=== PATIENT | male | born 2000 | race Two or more races ===

== ENCOUNTER 2022-08-04 17:10 | Emergency (ER) | payer MEDICAID, OTHER ==
[~2022-08-04] VITALS: Ht 180.3 cm; Wt 72.7 kg
[2022-08-04] MEDS ORDERED: CLINDAMYCIN 900MG IV 50 ML IV ONE (22:00)
[2022-08-04] MEDS ORDERED: SODIUM CHLORIDE 0.9% 1,000 ML IV ONE (22:00)
[2022-08-04] MEDS ORDERED: TETANUS-DIPTH-ACEL PERTUSSIS 0.5ML SYR Tdap IM ONE (22:00)
[2022-08-04] MEDS ORDERED: cefTRIAXone 1GM/50ML D5W 50 ML IV ONE (22:00)
[2022-08-04] MEDS ORDERED: ACETAMINOPHEN 325 MG TAB PO ONE (22:00)
[2022-08-04 22:30] LABS: Basophils # (auto) 0.1 10 ^3/uL (0-0.2); Basophils % (auto) 0.7 % (0.0-2.0); Eosinophils # (auto) 0.2 10 ^3/uL (0-0.8); Eosinophils % (auto) 2.3 % (0.0-7.0); Hematocrit 44.9 % (41.0-53.0); Hemoglobin 15.2 g/dL (13.5-17.5); Lymphocytes # (auto) 1.9 10 ^3/uL (0.4-5.4); Mean Corpuscular Hemoglobin 32.3 pg (28.0-32.0); Mean Corpuscular Hgb Conc. 33.9 g/dL (32.0-36.0); Mean Corpuscular Volume 95.3 fL (80.0-100.0); Monocytes # (auto) 0.9 10 ^3/uL (0-1.3); Monocytes % (auto) 9.9 % (0.0-12.0); Neutrophils % (auto) 66.1 % (37.0-80.0); Nucleated Red Blood Cells % 0.1 %; Red Blood Cells 4.71 10^6/uL (4.5-5.90); Red Cell Distribution Width 13.7 % (11.8-14.3); White Blood Cell 9.1 10^3/uL (4.4-10.8)
[2022-08-04 22:50] LABS: BUN/Creatinine Ratio 17.6; Calcium 9.4 mg/dL (8.5-10.1); Potassium 4.4 mmol/L (3.5-5.1)
[2022-08-04 22:52] LABS: Bilirubin, Total 0.2 mg/dL (0.2-1.0); Total Protein 7.9 g/dL (6.4-8.2)
[2022-08-04] MEDS ORDERED: AMOX-277 PO (23:54)
[2022-08-05 01:03] VITALS: BP 126/82
== END 2022-08-05 01:03 | disposition home or self-care (01) ==
LOC: ER 17:10
DX: S61.452A Open bite of left hand, initial encounter (principal); L03.114 Cellulitis of left upper limb; W55.01XA Bitten by cat, initial encounter; Y93.89 Activity, other specified; Y92.89 Other specified places as the place of occurrence of the external cause; Y99.8 Other external cause status
CPT/HCPCS: 36415; 80053; 83605; 85025; 87040; 90471; 90715; 96365; 96368; 99284; J0696; J3490; J7030

== ENCOUNTER 2024-07-31 09:17 | Inpatient (IN) | payer MEDICAID ==
[~2024-07-31] VITALS: Ht 175.3 cm; Wt 67.9 kg
[~2024-07-31 09:17] MED LIST: AMOX875T4 PO
--- NOTE | 2024-07-31 09:49 | ED.PDOC ---
Musculoskeletal HPI Comments This is a pleasant 23-year-old that presents with a pain to the right foot located to the 5th distal phalanx. Reports she stubbed her toe broken piece of wood. Symptoms associated with redness swelling tenderness to touch. Concerned about a possible infection. Able to ambulate without assistive devices Still able to ambulate Denies fever chills night sweats nausea vomiting Last Tdap: unknown Chief Complaint: Lower Extremity Time Seen by MD: 09:30 Primary Care Provider: NONE Reviewed Notes: Nurses Notes, Medications, Allergies Allergies: Coded Allergies: NO KNOWN ALLERGIES (Unverified , 08/04/22) Home Meds Active Scripts Amoxicillin & Pot Clavulanate (Amoxicillin/Potassium Cla) 875 Mg Tab, 1 TAB PO BID for 7 Days, #14 TAB 0 Refills Prov:AUSTEN MORALES 08/04/22 Information Source: Patient Mode of Arrival: Ambulatory Past Medical History PAST MEDICAL HISTORY: Denies Surgical History: Denies all surgeries Family History Family History: Reviewed,noncontributory to illness, Unknown Social History Smoker: Non-Smoker, Other Alcohol: Denies ETOH Use Drugs: Denies Drug Use, Marijuana Lives In: Home All Other Systems: Reviewed and Negative (Per HPI) Physical Exam General Appearance: No Apparent Distress, Normal HEENT: Normal ENT Inspection, Pharynx Normal, TMs Normal Neck: Full Range of Motion, Non-Tender, Normal, Normal Inspection Respiratory: Chest Non-Tender, Lungs Clear, No Accessory Muscle Use, No Respiratory Distress, Normal Breath Sounds Cardiovascular: No Edema, No JVD, No Murmur, No Gallop, Normal Peripheral Pulses, Regular Rate/Rhythm Breast Exam: Deferred Gastrointestinal: No Organomegaly, Non Tender, No Pulsatile Mass, Normal Bowel Sounds, Soft Genitalia: Deferred Pelvic: Deferred Rectal: Deferred Extremities: No calf tenderness, Normal capillary refill, Normal inspection, Normal range of motion, Non-tender, No pedal edema Musculoskeletal : Apperance: Normal Neurologic: Alert, No Motor Deficits, Normal Affect, Normal Mood, No Sensory Deficits Cerebellar Function: Normal Reflexes: Normal Skin: Dry, Normal Color, Warm Lymphatic: No Adenopathy Was a procedure done? Was a procedure done?: No Images 1 - Streaking, erythema, warmth, TTP 2 - pin point wound. surrounding erythema. fluctuance. no crepitus. ttp. Differential Diagnosis EXT Differential Diagnosis: Cellulitis, Other X-Ray, Labs, Meds, VS Vital Signs Date Time Temp Pulse Resp B/P (MAP) Pulse Ox O2 Delivery O2 Flow Rate FiO2 07/31/24 17:00 74 14 131/81 (98) 100 07/31/24 14:18 74 18 124/66 (85) 99 07/31/24 09:47 99.1 115 20 150/86 (107) 95 99.1 07/31/24 09:47 115 20 95 Room Air 07/31/24 09:21 99.1 115 20 150/86 (107) 95 Lab Test 07/31/24 10:42 07/31/24 09:29 Range/Units White Blood Count 8.6 4.4-10.8 10^3/uL Red Blood Count 4.70 4.5-5.90 10^6/uL Hemoglobin 14.4 13.5-17.5 g/dL Hematocrit 43.0 41.0-53.0 % Mean Corpuscular Volume 91.5 80.0-100.0 fL Mean Corpuscular Hemoglobin 30.7 28.0-32.0 pg Mean Corpuscular Hemoglobin Concent 33.5 32.0-36.0 g/dL Red Cell Distribution Width 13.4 11.8-14.3 % Platelet Count 293 140-450 10^3/uL Mean Platelet Volume 8.5 6.9-10.8 fL Neutrophils (%) (Auto) 76.9 37.0-80.0 % Lymphocytes (%) (Auto) 15.1 10.0-50.0 % Monocytes (%) (Auto) 5.6 0.0-12.0 % Eosinophils (%) (Auto) 0.8 0.0-7.0 % Basophils (%) (Auto) 1.6 0.0-2.0 % Neutrophils # (Auto) 6.6 1.6-8.6 10 ^3/uL Lymphocytes # (Auto) 1.3 0.4-5.4 10 ^3/uL Monocytes # (Auto) 0.5 0-1.3 10 ^3/uL Eosinophils # (Auto) 0.1 0-0.8 10 ^3/uL Basophils # (Auto) 0.1 0-0.2 10 ^3/uL Nucleated Red Blood Cells 0.0 % Erythrocyte Sedimentation Rate 7 0-20 mm/hr Sodium Level 141 136-145 mmol/L Potassium Level 4.5 3.5-5.1 mmol/L Chloride Level 107 98-107 mmol/L Carbon Dioxide Level 29 20-31 mmol/L Anion Gap 5 5-15 Blood Urea Nitrogen 13 9-23 mg/dL Creatinine 1.00 0.700-1.30 mg/dL Glomerular Filtration Rate Calc 107 >90 mL/min BUN/Creatinine Ratio 13.0 10.0-20.0 Serum Glucose 92 74-106 mg/dL Lactic Acid Level 0.9 0.4-2.0 mmol/L Calcium Level 10.4 8.7-10.4 mg/dL Total Bilirubin 0.6 0.2-1.0 mg/dL Aspartate Amino Transferase (AST) 18 13-40 U/L Alanine Aminotransferase (ALT) 22 7-40 U/L Alkaline Phosphatase 78 46-116 U/L C-Reactive Protein High Sensitivity 0.63 <1.0 mg/dL Total Protein 7.6 5.7-8.2 g/dL Albumin 4.9 H 3.2-4.8 g/dL Urine Color Light-yellow Yellow Urine Clarity Clear Clear Urine pH 6.0 5.0-9.0 Urine Specific [place] 1.021 1.001-1.035 Urine Protein Negative Negative Urine Ketones Negative Negative Urine Blood Negative Negative /uL Urine Nitrite Negative Negative Urine Bilirubin Negative Negative Urine Urobilinogen Normal Negative mg/dL Urine Leukocyte Esterase Negative Negative /uL Urine RBC 1 0 - 3 /hpf Urine WBC <1 0 - 3 /hpf Urine Squamous Epithelial Cells None seen <5 /hpf Urine Bacteria None seen None Seen /hpf Urine Glucose Normal Normal mg/dL Current Medications Medications (Trade) Dose Ordered Sig/Itzel Route Start Time Stop Time Status Last Admin Acetaminophen/ Hydrocodone Bitart (Agness 10/325MG Tab) 1 tab ONCE ONCE PO 07/31/24 10:30 07/31/24 10:31 DC 07/31/24 10:37 Cefazolin Sodium 50 ml @ 100 mls/hr ONCE ONCE IV 07/31/24 13:45 07/31/24 14:14 DC 07/31/24 13:51 Diphtheria/ Tetanus/Acell Pertussis (Boostrix T-Dap) 0.5 ml ONCE ONCE IM 07/31/24 13:45 07/31/24 13:52 DC 07/31/24 14:13 PATIENT: SUHAS WILLISCCT: [id number]: [id number] : 2000 LOC: ER ROOM / BED: / AGE / SEX: 23 / M ADM STATUS: REG ER SERVICE 1255 ORDERING PHYSICIAN: VIKKI JEFFREY NP PROCEDURE(s): RTLEXW - RT LOWER EXTREMITY W CON REASON: Cellulitis, infected joint, abscess?? ORDER NUMBER(s): [id number], ACCESSION NUMBER(s): [id number] INDICATION: Cellulitis, infected joint, abscess COMPARISON: None TECHNIQUE: CT of the right foot was performed without and with contrast. 100 mL Omnipaque 300 were given Volume transverse images were obtained and reconstructed in multiple planes using bone and soft tissue algorithms. Radiation Dose Information: CT Dose: CTDI volume is 7.75 mGy. Dose-length product is 456.39 mGy*cm FINDINGS: No cortical destruction of bone. No periostitis. The joint spaces are normal. There is no fracture, dislocation or aggressive osseous lesion. Subcutaneous soft tissue swelling. No focal soft tissue abscess is seen. IMPRESSION: 1. No signs of osteomyelitis or abscess. Mild cellulitis 2. All CT scans at this medical facility are performed using dose modulation techniques as appropriate to a performed exam including the following: Automated exposure control was utilized; adjustment of the MA and/or KV according to patient size; and use of iterative reconstruction technique. ATED BY: WIN YI MD DICTATED DATE/TIME: 07/31/241331 SIGNED BY: WIN YI MD SIGNED DATE/TIME: 07/31/24 133 CC: X-Ray, Labs, Meds, VS Comment This is a pleasant 23-year-old that presents with a pain to the right foot located to the 5th distal phalanx. History and findings consistent with cellulitis. Patient well appearing. VSS. Given History, Exam, and Workup I have low suspicion for Necrotizing Fasciitis, Abscess, Osteomyelitis, DVT or other emergent problem as a cause for this presentation. Low risk for treatment failure based on history. The patient will be treated with antibiotics. Ancef 1 gm IV Based on location of infection, patient's workup reveals that the patient needs further evaluation and/or treatment for the above medical conditions. Patient verbalized understanding of the above and is awaiting further evaluation by the admitting service. Time of 1ST Reevaluation: 10:16 Reevaluation 1ST: Unchanged Patient Education/Counseling: Diagnosis, Treatment Family Education/Counseling: Diagnosis, Treatment Departure 1 Departure Time of Disposition: 13:46 Impression: Primary Impression: Cellulitis of right foot Disposition: ADMITTED INPATIENT Condition: Fair Critical Care Note Critical Care Time?: No Stability Stability form required: No Heart Score Heart Score: Heart Score Response (Comments) Value History N/A 0 EKG N/A 0 Age N/A 0 Risk Factors N/A 0 Troponin N/A 0 Total 0 VIKKI JEFFREY NP Jul 31, 2024 09:49
[2024-07-31] MEDS: HYDROcodone-ACET 10/325MG TAB PO ONE (10:37)
[2024-07-31 10:43] LABS: Urine Bacteria None Seen /hpf (None Seen)
[2024-07-31 11:06] LABS: Basophils # (auto) 0.1 10 ^3/uL (0-0.2); Basophils % (auto) 1.6 % (0.0-2.0); Eosinophils # (auto) 0.1 10 ^3/uL (0-0.8); Eosinophils % (auto) 0.8 % (0.0-7.0); Hemoglobin 14.4 g/dL (13.5-17.5); Lymphocytes # (auto) 1.3 10 ^3/uL (0.4-5.4); Lymphocytes % (auto) 15.1 % (10.0-50.0); Mean Corpuscular Hemoglobin 30.7 pg (28.0-32.0); Mean Corpuscular Hgb Conc. 33.5 g/dL (32.0-36.0); Mean Corpuscular Volume 91.5 fL (80.0-100.0); Monocytes # (auto) 0.5 10 ^3/uL (0-1.3); Monocytes % (auto) 5.6 % (0.0-12.0); Neutrophils # (auto) 6.6 10 ^3/uL (1.6-8.6); Neutrophils % (auto) 76.9 % (37.0-80.0); Platelet Count (auto) 293 10^3/uL (140-450); Red Cell Distribution Width 13.4 % (11.8-14.3); White Blood Cell 8.6 10^3/uL (4.4-10.8)
[2024-07-31 11:15] LABS: Urine Blood Negative /uL (Negative); Urine Clarity Clear (Clear); Urine Color Light-Yellow (Yellow); Urine Protein, UAD Negative (Negative); Urine Specific Gravity 1.021 (1.001-1.035); Urine Squamous Epithelial Cell None Seen /hpf (<5); Urine Urobilinogen Normal (Negative); Urine WBC <1 /hpf (0 - 3)
[2024-07-31 11:35] LABS: Alanine Aminotransferase 22 U/L (7-40); Alkaline Phosphatase 78 U/L (46-116); Anion Gap 5 (5-15); Aspartate Aminotransferase 18 U/L (13-40); Blood Urea Nitrogen 13 mg/dL (9-23); CRP High Sensitivity 0.63 mg/dL (<1.0); Calcium 10.4 mg/dL (8.7-10.4); Carbon Dioxide 29 mmol/L (20-31); Chloride 107 mmol/L (98-107); Glucose 92 mg/dL (74-106); Potassium 4.5 mmol/L (3.5-5.1); Sodium 141 mmol/L (136-145)
[2024-07-31 11:36] LABS: Bilirubin, Total 0.6 mg/dL (0.2-1.0); Total Protein 7.6 g/dL (5.7-8.2)
[2024-07-31 11:52] LABS: Albumin 4.9 g/dL (3.2-4.8)
[2024-07-31] MEDS: IOHEXOL 300 MG/ML 100ML BOTTLE IJ ONE (13:28)
--- NOTE | 2024-07-31 13:35 | DVH ---
INDICATION: Cellulitis, infected joint, abscess COMPARISON: None TECHNIQUE: CT of the right foot was performed without and with contrast. 100 mL Omnipaque 300 were gi ebonie Volume transverse images were obtained and reconstructed in multiple planes using bone and soft t issue algorithms. Radiation Dose Information: CT Dose: CTDI volume is 7.75 mGy. Dose-length product is 456.39 mGy*cm FINDINGS: No cortical destruction of bone. No periostitis. The joint spaces are normal. There is no fracture, dislocation or aggressive osseous lesion. Subcutaneous soft tissue swelling. No focal soft tissue abscess is seen. IMPRESSION: 1. No signs of osteomyelitis or abscess. Mild cellulitis 2. All CT scans at this medical facility are performed using dose modulation techniques as appropriat e to a performed exam including the following: Automated exposure control was utilized; adjustment of the MA and/or KV according to patient size; and use of iterative reconstruction technique.
[2024-07-31] MEDS: ceFAZolin 1GM/50ML 50 ML IV ONE (13:51)
[2024-07-31 13:55] LABS: Erythrocyte Sedimentation Rate 7 mm/hr (0-20)
[2024-07-31] MEDS: TETANUS-DIPTH-ACEL PERTUSSIS 0.5ML SYR Tdap IM ONE (14:13)
[2024-07-31] MEDS ORDERED: TEMAZEPAM 15 MG CAP PO PRN (19:00)
[2024-07-31] MEDS ORDERED: ONDANSETRON HCL 4 MG/2 ML VIAL IV PRN (19:00)
[2024-07-31] MEDS ORDERED: ACETAMINOPHEN 325 MG TAB PO PRN (19:00)
--- NOTE | 2024-07-31 21:05 | DVHHP2 ---
History of Present Illness Reason for Visit: Foot infection History of Present Illness 23-year-old male presents for evaluation of right foot infection. The patient reports stubbing his right 5th toe five days ago. She reports noticing worsening swelling to the toe as well as redness and tenderness to the area. Denies fever or chills. No other acute complaints reported. Past Medical History Denies Past Surgical History Noncontributory Family History Noncontributory Smoke: No ALCOHOL: occassional Drugs: None, Marijuana Lives: with Family Review of Systems Review of Systems Review of Systems are currently negative otherwise addressed in HPI. Allergies: Coded Allergies: NO KNOWN ALLERGIES (Unverified , 08/04/22) Medications Current Medications Medications Dose Ordered Sig/Itzel Route Start Time Stop Time Status Last Admin Dose Admin Ceftriaxone Sodium 50 ml @ 100 mls/hr DAILY@09 IV 08/01/24 09:00 Clindamycin Phosphate 50 ml @ 50 mls/hr Q8HR IV 07/31/24 22:00 Acetaminophen/ Hydrocodone Bitart 1 tab Q4HP PRN PO 07/31/24 19:00 Temazepam 15 mg QHSP PRN PO 07/31/24 19:00 Ondansetron HCl 4 mg Q4HP PRN IV 07/31/24 19:00 Acetaminophen 650 mg Q6HP PRN PO 07/31/24 19:00 Exam Vital Signs Vital Signs Date Time Temp Pulse Resp B/P (MAP) Pulse Ox O2 Delivery O2 Flow Rate FiO2 07/31/24 17:00 74 14 131/81 (98) 100 07/31/24 09:47 99.1 99.1 07/31/24 09:47 Room Air Exam Gen: 23-year-old male in mild distress Skin: Warm, dry, normal color and texture, no rash. HEENT: Normocephalic atraumatic, mucous membranes moist and pink. Neck: Cervical and supraclavicular nodes normal without enlargement, trachea is midline, thyroid gland is normal without masses. Pulmonary: Clear to auscultation and percussion bilaterally. Cardiac: Regular rate and rhythm. No murmur Abdomen: Soft, nontender, nondistended, bowel sounds present all 4 quadrants, no guarding, no rigidity, no organomegaly. Extremities: No cyanosis, clubbing, right foot cellulitis with mild discoloration to 5th toe Neuro: Cranial nerves II through XII grossly intact, normal affect and speech, no focal motor deficits. Labs/Xrays ORDERING PHYSICIAN: VIKKI JEFFREY NP PROCEDURE(s): RTLEXW - RT LOWER EXTREMITY W CON REASON: Cellulitis, infected joint, abscess?? ORDER NUMBER(s): [id number], ACCESSION NUMBER(s): [id number] INDICATION: Cellulitis, infected joint, abscess COMPARISON: None TECHNIQUE: CT of the right foot was performed without and with contrast. 100 mL Omnipaque 300 were given Volume transverse images were obtained and reconstructed in multiple planes using bone and soft tissue algorithms. Radiation Dose Information: CT Dose: CTDI volume is 7.75 mGy. Dose-length product is 456.39 mGy*cm FINDINGS: No cortical destruction of bone. No periostitis. The joint spaces are normal. There is no fracture, dislocation or aggressive osseous lesion. Subcutaneous soft tissue swelling. No focal soft tissue abscess is seen. IMPRESSION: 1. No signs of osteomyelitis or abscess. Mild cellulitis 2. All CT scans at this medical facility are performed using dose modulation techniques as appropriate to a performed exam including the following: Automated exposure control was utilized; adjustment of the MA and/or KV according to patient size; and use of iterative reconstruction technique. Labs Test 07/31/24 10:42 07/31/24 09:29 Range/Units White Blood Count 8.6 4.4-10.8 10^3/uL Red Blood Count 4.70 4.5-5.90 10^6/uL Hemoglobin 14.4 13.5-17.5 g/dL Hematocrit 43.0 41.0-53.0 % Mean Corpuscular Volume 91.5 80.0-100.0 fL Mean Corpuscular Hemoglobin 30.7 28.0-32.0 pg Mean Corpuscular Hemoglobin Concent 33.5 32.0-36.0 g/dL Red Cell Distribution Width 13.4 11.8-14.3 % Platelet Count 293 140-450 10^3/uL Mean Platelet Volume 8.5 6.9-10.8 fL Neutrophils (%) (Auto) 76.9 37.0-80.0 % Lymphocytes (%) (Auto) 15.1 10.0-50.0 % Monocytes (%) (Auto) 5.6 0.0-12.0 % Eosinophils (%) (Auto) 0.8 0.0-7.0 % Basophils (%) (Auto) 1.6 0.0-2.0 % Neutrophils # (Auto) 6.6 1.6-8.6 10 ^3/uL Lymphocytes # (Auto) 1.3 0.4-5.4 10 ^3/uL Monocytes # (Auto) 0.5 0-1.3 10 ^3/uL Eosinophils # (Auto) 0.1 0-0.8 10 ^3/uL Basophils # (Auto) 0.1 0-0.2 10 ^3/uL Nucleated Red Blood Cells 0.0 % Erythrocyte Sedimentation Rate 7 0-20 mm/hr Sodium Level 141 136-145 mmol/L Potassium Level 4.5 3.5-5.1 mmol/L Chloride Level 107 98-107 mmol/L Carbon Dioxide Level 29 20-31 mmol/L Anion Gap 5 5-15 Blood Urea Nitrogen 13 9-23 mg/dL Creatinine 1.00 0.700-1.30 mg/dL Glomerular Filtration Rate Calc 107 >90 mL/min BUN/Creatinine Ratio 13.0 10.0-20.0 Serum Glucose 92 74-106 mg/dL Lactic Acid Level 0.9 0.4-2.0 mmol/L Calcium Level 10.4 8.7-10.4 mg/dL Total Bilirubin 0.6 0.2-1.0 mg/dL Aspartate Amino Transferase (AST) 18 13-40 U/L Alanine Aminotransferase (ALT) 22 7-40 U/L Alkaline Phosphatase 78 46-116 U/L C-Reactive Protein High Sensitivity 0.63 <1.0 mg/dL Total Protein 7.6 5.7-8.2 g/dL Albumin 4.9 H 3.2-4.8 g/dL Urine Color Light-yellow Yellow Urine Clarity Clear Clear Urine pH 6.0 5.0-9.0 Urine Specific [place] 1.021 1.001-1.035 Urine Protein Negative Negative Urine Ketones Negative Negative Urine Blood Negative Negative /uL Urine Nitrite Negative Negative Urine Bilirubin Negative Negative Urine Urobilinogen Normal Negative mg/dL Urine Leukocyte Esterase Negative Negative /uL Urine RBC 1 0 - 3 /hpf Urine WBC <1 0 - 3 /hpf Urine Squamous Epithelial Cells None seen <5 /hpf Urine Bacteria None seen None Seen /hpf Urine Glucose Normal Normal mg/dL Assessment/Plan Assessment/Plan Assessment Right foot cellulitis Sirs Plan Admit the patient to [facility] to the hospitalist Rocephin/clindamycin Pain management Continue treatment per orders. Plan discussed with: Patient My Orders Orders - HELDER JOHNSTON Procedure Category Date Status Time Regular Diet DIET 08/01/24 Transmitted Breakfast Ceftriaxone 1gm/50ml PHA 08/01/24 In Process D5w (Rocephin) 09:00 Clindamycin 600mg Iv PHA 07/31/24 In Process (Cleocin Iv) 22:00 Basic Metabolic Panel LAB 08/01/24 Verified 04:00 Admit ADMIT 07/31/24 Transmitted 18:48 Hydrocodone-Acet PHA 07/31/24 In Process 5/325mg Tab ([place] 19:00 Temazepam (Restoril) PHA 07/31/24 In Process 19:00 Ondansetron Hcl PHA 07/31/24 In Process (Zofran) 19:00 Complete Blood Count LAB 08/01/24 Verified 04:00 Condition: Stable RICARDO 07/31/24 In Process 18:48 Acetaminophen Tablet PHA 07/31/24 In Process (Tylenol Tablet) 19:00 Bedrest With Bathroom RICARDO 07/31/24 In Process Privileg 18:48 Date of Service: Jul 31, 2024 Billing Provider: HELDER JOHNSTON Common Visit Codes: [id number] INP/OBS CARE (HIGH) HELDER JOHNSTON Jul 31, 2024 21:05
[2024-07-31 21:42] VITALS: BP 126/74; PULSE 64; RESP 18; TEMP 98.1; O2SAT 98
[2024-07-31] MEDS: HYDROcodone-ACET 5/325MG TAB PO PRN (22:50)
[2024-07-31] MEDS: CLINDAMYCIN 600MG IV 50 ML IV SCH (22:50)
[2024-08-01] VITALS (8 sets, daily range): BP systolic 122–134; BP diastolic 65–81; PULSE 64–87; RESP 16–20; TEMP 97.6–98.9; O2SAT 95–100
[2024-08-01 05:58] LABS: Basophils # (auto) 0.1 10 ^3/uL (0-0.2); Eosinophils # (auto) 0.2 10 ^3/uL (0-0.8); Eosinophils % (auto) 3.1 % (0.0-7.0); Hematocrit 39.9 % (41.0-53.0); Hemoglobin 13.6 g/dL (13.5-17.5); Lymphocytes # (auto) 2.1 10 ^3/uL (0.4-5.4); Lymphocytes % (auto) 28.5 % (10.0-50.0); Mean Corpuscular Hemoglobin 31.2 pg (28.0-32.0); Mean Corpuscular Volume 91.7 fL (80.0-100.0); Monocytes # (auto) 0.6 10 ^3/uL (0-1.3); Monocytes % (auto) 7.9 % (0.0-12.0); Neutrophils # (auto) 4.4 10 ^3/uL (1.6-8.6); Neutrophils % (auto) 59.5 % (37.0-80.0); Nucleated Red Blood Cells % 0.1 %; Platelet Count (auto) 245 10^3/uL (140-450); Red Blood Cells 4.35 10^6/uL (4.5-5.90); Red Cell Distribution Width 13.4 % (11.8-14.3); White Blood Cell 7.4 10^3/uL (4.4-10.8)
[2024-08-01 06:10] LABS: Chloride 105 mmol/L (98-107); Potassium 3.9 mmol/L (3.5-5.1); Sodium 139 mmol/L (136-145)
[2024-08-01 06:11] LABS: Anion Gap 6 (5-15); Carbon Dioxide 28 mmol/L (20-31)
[2024-08-01 06:16] LABS: BUN/Creatinine Ratio 12.8 (10.0-20.0); Blood Urea Nitrogen 12 mg/dL (9-23); Glucose 88 mg/dL (74-106)
[2024-08-01] MEDS: cefTRIAXone 1GM/50ML D5W 50 ML IV SCH (09:32)
--- NOTE | 2024-08-01 10:25 | DVHPN2 ---
Subjective 23 year old male no PMH, injured right foot a week ago Changes from previous H/P or p: Changes Objective Vitals Vital Signs Date Time Temp Pulse Resp B/P (MAP) Pulse Ox O2 Delivery O2 Flow Rate FiO2 08/01/24 09:00 97.9 87 17 126/69 (88) 99 97.9 07/31/24 21:42 Room Air* 0 21 Intake/Output Intake and Output 08/01/24 06:59 Intake Total 400 ml Balance 400 ml Intake Oral 300 ml IV Total 100 ml # Voids 5 General Appearance: Alert, Oriented X3, Cooperative, No acute distress Lungs: Clear to auscultation, Normal air movement Cardiovascular: Regular rate, Normal S1, Normal S2 Abdomen: Normal bowel sounds, Soft, No tenderness Extremities: No edema Medications Current Medications Medications Dose Ordered Sig/Itzel Route Start Time Stop Time Status Last Admin Dose Admin Ceftriaxone Sodium 50 ml @ 100 mls/hr DAILY@09 IV 08/01/24 09:00 08/01/24 09:32 100 MLS/HR Clindamycin Phosphate 50 ml @ 50 mls/hr Q8HR IV 07/31/24 22:00 08/01/24 06:09 50 MLS/HR Acetaminophen/ Hydrocodone Bitart 1 tab Q4HP PRN PO 07/31/24 19:00 07/31/24 22:50 1 TAB Temazepam 15 mg QHSP PRN PO 07/31/24 19:00 Ondansetron HCl 4 mg Q4HP PRN IV 07/31/24 19:00 Acetaminophen 650 mg Q6HP PRN PO 07/31/24 19:00 Laboratory Results Laboratory Tests 08/01/24 04:55 Chemistry Test 07/31/24 10:42 08/01/24 04:55 Albumin 4.9 g/dL (3.2-4.8) H Calcium Level 10.4 mg/dL (8.7-10.4) 10.0 mg/dL (8.7-10.4) Total Protein 7.6 g/dL (5.7-8.2) LFT Test 07/31/24 10:42 Alanine Aminotransferase (ALT) 22 U/L (7-40) Alkaline Phosphatase 78 U/L (46-116) Aspartate Amino Transferase (AST) 18 U/L (13-40) Total Bilirubin 0.6 mg/dL (0.2-1.0) Urinalysis Test 07/31/24 09:29 Urine Color Light-yellow (Yellow) Urine Clarity Clear (Clear) Urine pH 6.0 (5.0-9.0) Urine Specific [place] 1.021 (1.001-1.035) Urine Protein Negative (Negative) Urine Ketones Negative (Negative) Urine Blood Negative /uL (Negative) Urine Nitrite Negative (Negative) Urine Bilirubin Negative (Negative) Urine Urobilinogen Normal mg/dL (Negative) Urine Leukocyte Esterase Negative /uL (Negative) Urine RBC 1 /hpf (0 - 3) Urine WBC <1 /hpf (0 - 3) Urine Squamous Epithelial Cells None seen /hpf (<5) Urine Bacteria None seen /hpf (None Seen) Urine Glucose Normal mg/dL (Normal) Assessment/Plan Assessment/Plan Right foot cellulitis Right 5th toe wound PLAN: IV antibiotics Podiatry consult Pain control Plan discussed with: Patient Date of Service: Aug 01, 2024 Billing Provider: RAUDEL KHAN MD Common Visit Codes: [id number] INP/OBS CARE(HIGH) RAUDEL KHAN MD Aug 01, 2024 10:25
--- NOTE | 2024-08-01 12:40 | DVHINCON2 ---
Date Seen: Aug 01, 2024 Reason for Consultation Right foot cellulitis History of Present Illness 23-year-old male presents for evaluation of right foot infection. The patient reports stubbing his right 5th toe five days ago. She reports noticing worsening swelling to the toe as well as redness and tenderness to the area. Denies fever or chills. No other acute complaints reported. Past Medical History See H&P Past Surgical History See H&P Family History: Patient reports no known family medical history. Allergies: Coded Allergies: NO KNOWN ALLERGIES (Unverified , 08/04/22) Home Meds Active Scripts Amoxicillin & Pot Clavulanate (Amoxicillin/Potassium Cla) 875 Mg Tab, 1 TAB PO BID for 7 Days, #14 TAB 0 Refills Prov:AUSTEN MORALES 08/04/22 Current Medications Current Medications Medications (Trade) Dose Ordered Sig/Itzel Route PRN Reason Start Time Stop Time Status Last Admin Ceftriaxone Sodium 50 ml @ 100 mls/hr DAILY@09 IV 08/01/24 09:00 08/01/24 09:32 Clindamycin Phosphate 50 ml @ 50 mls/hr Q8HR IV 07/31/24 22:00 08/01/24 06:09 Acetaminophen/ Hydrocodone Bitart (Shushan 5/325MG Tab) 1 tab Q4HP PRN PO MODERATE PAIN (4-6 PAIN SCALE) 07/31/24 19:00 07/31/24 22:50 Temazepam (Restoril) 15 mg QHSP PRN PO FOR INSOMNIA 07/31/24 19:00 Ondansetron HCl (Zofran) 4 mg Q4HP PRN IV NAUSEA / VOMITING 07/31/24 19:00 Acetaminophen (Tylenol Tablet) 650 mg Q6HP PRN PO PAIN SCALE 1-3 OR TEMP>100.4 07/31/24 19:00 Vital Signs Vital Signs Date Time Temp Pulse Resp B/P (MAP) Pulse Ox O2 Delivery O2 Flow Rate FiO2 08/01/24 09:00 97.9 87 17 126/69 (88) 99 97.9 08/01/24 08:00 Room Air* 0 21 Physical Exam DERMATOLOGIC EXAM: - Skin is dry and cool to the touch dry bilaterally. - Nails 1-5 of the bilateral foot are thickened, discolored, dystrophic, and tender to palpate with subungual debris - Hair loss noted to bilateral feet Wound #1: Location: Right 5th toe cellulitis Measurements: Length 0.2 cm x width 0.2 cm x depth 0.2 cm. Wound margins: Hyperkeratotic. Wound base: Full thickness. General Appearance: Healthy and bleeding. Probes to Bone: No Purulent drainage: No Serous drainage: No Erythema: Absent VASCULAR EXAM: - DP and PT pulses are palpable bilaterally. 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 - Feet are cool to touch compared to lower legs bilaterally. NEUROLOGIC EXAM: - Normal light touch sensation to the superficial peroneal, deep peroneal, sural, saphenous, and tibial nerve branches. - Protective sensation is diminished as tested with a 5.07 10g [place] bilaterally. MUSCULOSKELETAL EXAM: - No gross deformities - Muscle strength is 5/5 and active motion is pain-free and symmetrical bilaterally - No pain or crepitation with passive range of motion bilaterally to all major pedal joints Labs/Diagnostic Data Labs Test 08/01/24 04:55 07/31/24 10:42 07/31/24 09:29 Range/Units White Blood Count 7.4 4.4-10.8 10^3/uL Red Blood Count 4.35 L 4.5-5.90 10^6/uL Hemoglobin 13.6 13.5-17.5 g/dL Hematocrit 39.9 L 41.0-53.0 % Mean Corpuscular Volume 91.7 80.0-100.0 fL Mean Corpuscular Hemoglobin 31.2 28.0-32.0 pg Mean Corpuscular Hemoglobin Concent 34.0 32.0-36.0 g/dL Red Cell Distribution Width 13.4 11.8-14.3 % Platelet Count 245 140-450 10^3/uL Mean Platelet Volume 8.7 6.9-10.8 fL Neutrophils (%) (Auto) 59.5 37.0-80.0 % Lymphocytes (%) (Auto) 28.5 10.0-50.0 % Monocytes (%) (Auto) 7.9 0.0-12.0 % Eosinophils (%) (Auto) 3.1 0.0-7.0 % Basophils (%) (Auto) 1.0 0.0-2.0 % Neutrophils # (Auto) 4.4 1.6-8.6 10 ^3/uL Lymphocytes # (Auto) 2.1 0.4-5.4 10 ^3/uL Monocytes # (Auto) 0.6 0-1.3 10 ^3/uL Eosinophils # (Auto) 0.2 0-0.8 10 ^3/uL Basophils # (Auto) 0.1 0-0.2 10 ^3/uL Nucleated Red Blood Cells 0.1 % Sodium Level 139 136-145 mmol/L Potassium Level 3.9 3.5-5.1 mmol/L Chloride Level 105 98-107 mmol/L Carbon Dioxide Level 28 20-31 mmol/L Anion Gap 6 5-15 Blood Urea Nitrogen 12 9-23 mg/dL Creatinine 0.94 0.700-1.30 mg/dL Glomerular Filtration Rate Calc 115 >90 mL/min BUN/Creatinine Ratio 12.8 10.0-20.0 Serum Glucose 88 74-106 mg/dL Calcium Level 10.0 8.7-10.4 mg/dL Erythrocyte Sedimentation Rate 7 0-20 mm/hr Lactic Acid Level 0.9 0.4-2.0 mmol/L Total Bilirubin 0.6 0.2-1.0 mg/dL Aspartate Amino Transferase (AST) 18 13-40 U/L Alanine Aminotransferase (ALT) 22 7-40 U/L Alkaline Phosphatase 78 46-116 U/L C-Reactive Protein High Sensitivity 0.63 <1.0 mg/dL Total Protein 7.6 5.7-8.2 g/dL Albumin 4.9 H 3.2-4.8 g/dL Urine Color Light-yellow Yellow Urine Clarity Clear Clear Urine pH 6.0 5.0-9.0 Urine Specific [place] 1.021 1.001-1.035 Urine Protein Negative Negative Urine Ketones Negative Negative Urine Blood Negative Negative /uL Urine Nitrite Negative Negative Urine Bilirubin Negative Negative Urine Urobilinogen Normal Negative mg/dL Urine Leukocyte Esterase Negative Negative /uL Urine RBC 1 0 - 3 /hpf Urine WBC <1 0 - 3 /hpf Urine Squamous Epithelial Cells None seen <5 /hpf Urine Bacteria None seen None Seen /hpf Urine Glucose Normal Normal mg/dL Problems(with codes): (1) Cellulitis of left hand (2) Cat bite of left hand (3) Cellulitis of right foot Plan/Recommendation ASSESSMENT: Patient is a 23-year-old seen on the floor for a 5th toe cellulitis PLAN: - The patients chart was reviewed, clinical findings were discussed with the patient, the etiologies of the conditions were discussed in detail, and a treatment plan was agreed to at this time, with both oral and written instructions provided. - review the CT - recommend that we get an MRI of the right foot - patient will just need oral antibiotics have no deeper abscess - we will determine if patient requires surgery depending on the MRI All questions were answered and concerns addressed to the patient's satisfaction. The patient was given the phone number to the clinic and was told how to make contact with the clinic should any concerns or questions arise. Patient understands that if any questions or concerns arise prior to the next appointment, we should be contacted immediately. FOLLOW-UP: Continue to follow while inpatient Plan discussed with: Patient Date of Service: Aug 01, 2024 Billing Provider: GUERO PIERCE DPM Common Visit Codes: [id number] INP/OBS CARE (MOD) GUERO PIERCE DPM Aug 01, 2024 12:40
--- NOTE | 2024-08-01 14:40 | DVH ---
CLINICAL HISTORY: 23 years old, Male; right foot infection. TECHNIQUE: Multi sequence multi planar MRI images of the right midfoot and forefoot were obtained wi thout IV contrast. COMPARISON: Correlation made to CT dated 07/31/2024. FINDINGS: There is a soft tissue wound along the dorsal lateral aspect of the 5th digit near the dis margaret phalanx. There is subcutaneous edema in the 5th digit, possible cellulitis in the appropriate cli nical setting. There is also subcutaneous edema along the dorsal aspect of the midfoot and forefoot. There is no evidence for osteomyelitis. No focal fluid collection identified to suggest abscess. Visu alized tendons appear intact. No abnormality identified in the visualized musculature. IMPRESSION: 1. Wound in the 5th digit with adjacent subcutaneous edema, suspected cellulitis, and subcutaneous ed jeni also noted at the dorsal aspect of the midfoot and forefoot, which may also be due to cellulitis in the appropriate clinical setting. 2. No evidence of osteomyelitis or abscess.
[2024-08-02 01:00] VITALS: BP 117/76; PULSE 66; RESP 20; TEMP 97.8; O2SAT 98
[2024-08-02 05:00] VITALS: BP 127/84; PULSE 82; RESP 19; TEMP 97.4; O2SAT 99
[2024-08-02 08:00] VITALS: PULSE 66; RESP 18; O2SAT 99
[2024-08-02 09:00] VITALS: BP 101/70; PULSE 66; RESP 18; TEMP 98.1; O2SAT 99
--- NOTE | 2024-08-02 09:11 | DVHPN2 ---
Subjective 23-year-old male presents for evaluation of right foot infection. The patient reports stubbing his right 5th toe five days ago. She reports noticing worsening swelling to the toe as well as redness and tenderness to the area. Denies fever or chills. No other acute complaints reported. Changes from previous H/P or p: No Changes Objective Vitals Vital Signs Date Time Temp Pulse Resp B/P (MAP) Pulse Ox O2 Delivery O2 Flow Rate FiO2 08/02/24 05:00 97.4 82 19 127/84 (98) 99 97.4 08/01/24 19:30 Room Air* 0 21 Intake/Output Intake and Output 08/02/24 07:00 Intake Total 1160 ml Balance 1160 ml Intake Oral 1110 ml IV Total 50 ml # Voids 3 Exam DERMATOLOGIC EXAM: - Skin is dry and cool to the touch dry bilaterally. - Nails 1-5 of the bilateral foot are thickened, discolored, dystrophic, and tender to palpate with subungual debris - Hair loss noted to bilateral feet Wound #1: Location: Right 5th toe cellulitis Measurements: Length 0.2 cm x width 0.2 cm x depth 0.2 cm. Wound margins: Hyperkeratotic. Wound base: Full thickness. General Appearance: Healthy and bleeding. Probes to Bone: No Purulent drainage: No Serous drainage: No Erythema: Absent VASCULAR EXAM: - DP and PT pulses are palpable bilaterally. 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 - Feet are cool to touch compared to lower legs bilaterally. NEUROLOGIC EXAM: - Normal light touch sensation to the superficial peroneal, deep peroneal, sural, saphenous, and tibial nerve branches. - Protective sensation is diminished as tested with a 5.07 10g [place]-Jose bilaterally. MUSCULOSKELETAL EXAM: - No gross deformities - Muscle strength is 5/5 and active motion is pain-free and symmetrical bilaterally - No pain or crepitation with passive range of motion bilaterally to all major pedal joints General Appearance: Alert, Oriented X3, Cooperative, No acute distress Lungs: Clear to auscultation, Normal air movement Cardiovascular: Regular rate, Normal S1, Normal S2 Abdomen: Normal bowel sounds, Soft, No tenderness Extremities: No edema Medications Current Medications Medications Dose Ordered Sig/Itzel Route Start Time Stop Time Status Last Admin Dose Admin Ceftriaxone Sodium 50 ml @ 100 mls/hr DAILY@09 IV 08/01/24 09:00 08/01/24 09:32 100 MLS/HR Clindamycin Phosphate 50 ml @ 50 mls/hr Q8HR IV 07/31/24 22:00 08/02/24 06:00 50 MLS/HR Acetaminophen/ Hydrocodone Bitart 1 tab Q4HP PRN PO 07/31/24 19:00 08/01/24 20:28 1 TAB Temazepam 15 mg QHSP PRN PO 07/31/24 19:00 Ondansetron HCl 4 mg Q4HP PRN IV 07/31/24 19:00 Acetaminophen 650 mg Q6HP PRN PO 07/31/24 19:00 Laboratory Results Laboratory Tests 08/01/24 04:55 Urinalysis Test 07/31/24 09:29 Urine Color Light-yellow (Yellow) Urine Clarity Clear (Clear) Urine pH 6.0 (5.0-9.0) Urine Specific [place] 1.021 (1.001-1.035) Urine Protein Negative (Negative) Urine Ketones Negative (Negative) Urine Blood Negative /uL (Negative) Urine Nitrite Negative (Negative) Urine Bilirubin Negative (Negative) Urine Urobilinogen Normal mg/dL (Negative) Urine Leukocyte Esterase Negative /uL (Negative) Urine RBC 1 /hpf (0 - 3) Urine WBC <1 /hpf (0 - 3) Urine Squamous Epithelial Cells None seen /hpf (<5) Urine Bacteria None seen /hpf (None Seen) Urine Glucose Normal mg/dL (Normal) Assessment/Plan Assessment/Plan ASSESSMENT: Patient is a 23-year-old seen on the floor for a 5th toe cellulitis PLAN: - The patients chart was reviewed, clinical findings were discussed with the patient, the etiologies of the conditions were discussed in detail, and a treatment plan was agreed to at this time, with both oral and written instructions provided. - reviewed MRI - no deeper infection - patient can have oral antibiotics - patient should follow up with me in a week All questions were answered and concerns addressed to the patient's satisfaction. The patient was given the phone number to the clinic and was told how to make contact with the clinic should any concerns or questions arise. Patient understands that if any questions or concerns arise prior to the next appointment, we should be contacted immediately. FOLLOW-UP: Continue to follow while inpatient Plan discussed with: Patient My Orders Orders - GUERO PIERCE DPM Procedure Category Date Status Time Mri R Foot Wo Contrast MRI 08/01/24 Resulted 12:37 Problem List: (1) Cellulitis of right foot (2) Cellulitis of left hand (3) Cat bite of left hand Date of Service: Aug 02, 2024 Billing Provider: GUERO PIERCE DPM Common Visit Codes: [id number] INP/OBS CARE(MOD) GUERO PIERCE DPM Aug 02, 2024 09:11
[2024-08-02] MEDS ORDERED: AUG875T PO (11:17)
--- NOTE | 2024-08-02 11:20 | DVHDS2 ---
Discharge Summary Date of Admission Jul 31, 2024 at 18:48 Date of Discharge: Aug 02, 2024 Labs/Diagnostic Data: Laboratory Results Test 08/01/24 04:55 07/31/24 10:42 07/31/24 09:29 White Blood Count 7.4 10^3/uL (4.4-10.8) Red Blood Count 4.35 10^6/uL (4.5-5.90) Hemoglobin 13.6 g/dL (13.5-17.5) Hematocrit 39.9 % (41.0-53.0) Mean Corpuscular Volume 91.7 fL (80.0-100.0) Mean Corpuscular Hemoglobin 31.2 pg (28.0-32.0) Mean Corpuscular Hemoglobin Concent 34.0 g/dL (32.0-36.0) Red Cell Distribution Width 13.4 % (11.8-14.3) Platelet Count 245 10^3/uL (140-450) Mean Platelet Volume 8.7 fL (6.9-10.8) Neutrophils (%) (Auto) 59.5 % (37.0-80.0) Lymphocytes (%) (Auto) 28.5 % (10.0-50.0) Monocytes (%) (Auto) 7.9 % (0.0-12.0) Eosinophils (%) (Auto) 3.1 % (0.0-7.0) Basophils (%) (Auto) 1.0 % (0.0-2.0) Neutrophils # (Auto) 4.4 10 ^3/uL (1.6-8.6) Lymphocytes # (Auto) 2.1 10 ^3/uL (0.4-5.4) Monocytes # (Auto) 0.6 10 ^3/uL (0-1.3) Eosinophils # (Auto) 0.2 10 ^3/uL (0-0.8) Basophils # (Auto) 0.1 10 ^3/uL (0-0.2) Nucleated Red Blood Cells 0.1 % Sodium Level 139 mmol/L (136-145) Potassium Level 3.9 mmol/L (3.5-5.1) Chloride Level 105 mmol/L (98-107) Carbon Dioxide Level 28 mmol/L (20-31) Anion Gap 6 (5-15) Blood Urea Nitrogen 12 mg/dL (9-23) Creatinine 0.94 mg/dL (0.700-1.30) Glomerular Filtration Rate Calc 115 mL/min (>90) BUN/Creatinine Ratio 12.8 (10.0-20.0) Serum Glucose 88 mg/dL (74-106) Calcium Level 10.0 mg/dL (8.7-10.4) Erythrocyte Sedimentation Rate 7 mm/hr (0-20) Lactic Acid Level 0.9 mmol/L (0.4-2.0) Total Bilirubin 0.6 mg/dL (0.2-1.0) Aspartate Amino Transferase (AST) 18 U/L (13-40) Alanine Aminotransferase (ALT) 22 U/L (7-40) Alkaline Phosphatase 78 U/L (46-116) C-Reactive Protein High Sensitivity 0.63 mg/dL (<1.0) Total Protein 7.6 g/dL (5.7-8.2) Albumin 4.9 g/dL (3.2-4.8) Urine Color Light-yellow (Yellow) Urine Clarity Clear (Clear) Urine pH 6.0 (5.0-9.0) Urine Specific [place] 1.021 (1.001-1.035) Urine Protein Negative (Negative) Urine Ketones Negative (Negative) Urine Blood Negative /uL (Negative) Urine Nitrite Negative (Negative) Urine Bilirubin Negative (Negative) Urine Urobilinogen Normal mg/dL (Negative) Urine Leukocyte Esterase Negative /uL (Negative) Urine RBC 1 /hpf (0 - 3) Urine WBC <1 /hpf (0 - 3) Urine Squamous Epithelial Cells None seen /hpf (<5) Urine Bacteria None seen /hpf (None Seen) Urine Glucose Normal mg/dL (Normal) Other Laboratory Tests 08/01/24 04:55 Brief Hx & Hospital Course: Final diagnoses: Right foot cellulitis He was given IV antibiotics for the edema and erythema in his right foot after he injured his 5th toe a week ago He improved with the IV antibiotics Podiatry consult was called He had a CT scan and MRI of the foot which showed no osteomyelitis The recommendation is now to go home on oral antibiotics He is stable for discharge and follow up with primary care physician as soon as possible and with Podiatry in 1 week Condition at Discharge: Stable Final Diagnosis/Problems List Right foot cellulitis Discharge Disposition: Home SNF Discharge Will this Physician continue t: No Discharge Instruct/Medications Diet: Regular Activity: No Restrictions, As Tolerated Follow Up/Referral: PCP MICAELA Medications: Augmentin for 7 days Discharge Statement: "Patient was advised to return to the ER or call 911 if any headaches, dizziness, shortness of breath, chest pain, abdominal pain, bleeding, fevers, or worsening of medical condition. Patient was counseled about treatment plan, medications, possible side effects, patientverbalized understanding. All questions were answered to the best of my ability. This discharge took greater then 30 minutes in planning, reviewing documentation, counseling the patient, and discussing with other team members." ASSESSMENT ASSESSMENT Assessment Right foot cellulitis Date of Service: Aug 02, 2024 Billing Provider: RAUDEL KHAN MD Common Visit Codes: [id number] DISCH DAY >30min RAUDEL KHAN MD Aug 02, 2024 11:20
[2024-08-02 13:00] VITALS: BP 111/72; PULSE 70; RESP 18; TEMP 97.9; O2SAT 99
== END 2024-08-02 14:40 | disposition home or self-care (01) | DRG 383 ==
LOC: ER 09:17 → OVERFLOW 18:48 → WEST WING 21:42
PROVIDERS: ADMIT Internal Medicine Geriatric Medicine; ATTEND Internal Medicine Geriatric Medicine
DX: L03.115 Cellulitis of right lower limb (principal); S91.109A Unspecified open wound of unspecified toe(s) without damage to nail, initial encounter; X58.XXXA Exposure to other specified factors, initial encounter; Y93.89 Activity, other specified; Y92.89 Other specified places as the place of occurrence of the external cause; Y99.8 Other external cause status; Z79.899 Other long term (current) drug therapy
CPT/HCPCS: 36415; 73701; 73718; 80048; 80053; 81001; 83605; 85025; 85652; 86141; 90471; 90715; 96365; G0378; J3490